=== PATIENT | male | born 1945 | race Caucasian/White ===

== ENCOUNTER 2019-10-22 14:13 | Emergency (ER) | payer MEDICARE, BC, SELFPAY ==
--- NOTE | ~2019-10-22 | XR_ITS ---
EXAMINATION: XR toe 5th RT min 2V INDICATION: Dislocation reduction of the fifth toe TECHNIQUE: Three views of the right fifth toe are obtained. COMPARISON: 1440 hours FINDINGS: The previously described dislocation at the fifth metatarsophalangeal joint has been reduce d. Alignment is anatomic. There are partially imaged neck fractures of the second through fourth meta tarsals. IMPRESSION: 1. Reduced fifth metatarsophalangeal joint dislocation, otherwise no change. Reviewed, dictated and finalized at location A.
--- NOTE | ~2019-10-22 | XR_ITS ---
XR foot RT min 3V DATE: 10/22/2019 14:57 INDICATION: Injury, deformity TECHNIQUE: 4 views of right foot COMPARISON: None FINDINGS: There are transverse fractures at the next of the second through fourth metatarsal bones wi th approximately one cortical width average lateral displacement, with apex medial angulation at the third and fourth metatarsal neck fractures. There is posterolateral dislocation at the fifth metatarsophalangeal joint. Mild osteophyte is at the first metatarsophalangeal joint. IMPRESSION: Posterolateral dislocation of the fifth metatarsophalangeal joint Transverse fractures of the second through fourth metatarsal necks Reviewed, dictated and finalized at location A.
[2019-10-22 14:29] VITALS: BP 108/64; PULSE 69; RESP 17; TEMP 36.8; O2SAT 95
--- NOTE | 2019-10-22 15:07 | ED.GENADULT ---
HPI - General Adult General Chief complaint: Wound/Laceration Stated complaint: possible fractured or dislocated toe Time Seen by Provider: 10/22/19 14:30 Source: patient Mode of arrival: ambulatory History of Present Illness HPI narrative: This patient is a 74 year old male who presents for evaluation right 5th toe injury. He state he accidentally stubbed his right 5th toe on deck chair. This caused him to fall onto his right foot. He noticed that his right 5th toe is deformed so he thinks it may be dislocated. He has no numbness or tingling . He also notice mild pain to fore foot . Related Data Allergies Allergy/AdvReac Type Severity Reaction Status Date / Time ERYTHROMYCIN LACTOBIONATE Allergy Severe RASH Uncoded 10/22/19 14:32 Review of Systems Review of Systems: All systems reviewed & are unremarkable except as noted in HPI and below PMFSH Past Medical History Medical History (Updated 10/22/19 @ 16:38 by Ivana Boo MD) Enlarged prostate Surgical History Surgical History (Updated 10/22/19 @ 16:32 by Ivana Boo MD) H/O hernia repair Social History Social History (Updated 10/22/19 @ 16:33 by Ivana Boo MD) Smoking status: Never smoker Alcohol use details: social Gender identity (if verbalized by the patient): Male Exam Const: General: no acute distress and alert Orientation/consciousness: patient oriented x3 HENMT: Head: normocephalic and atraumatic Face and sinus: face symmetric Eyes: EOM: EOMs intact bilaterally Resp: Effort & Inspection: normal respiratory effort Skin: General skin exam: normal color Rashes: no rashes Neuro: General: patient oriented x3 and moves all extremities Extrem: Other: right foot with mild swelling and bruising at base of toes, with deformity to right 5th toe and tenderness Course Reevaluation(s) Reevaluation #1: Patient's toe has been reduce and he will be discharged with post op shoe and crutches Date: 10/22/19 Time: 16:34 Consultations Consultation #1: I spoke with Dr. Sosa who reviewed xray. He states patient can be given option of surgery tomorrow or go home in post op shoe and crutches. I Discussed with patient and he would prefer to follow up as outpatient and speak with Dr. Sosa. Date: 10/22/19 Time: 16:04 Vital Signs Vital signs: Vital Signs Temperature 98.2 F 10/22/19 14:29 Pulse Rate 69 10/22/19 14:29 Respiratory Rate 17 10/22/19 14:29 Blood Pressure 108/64 10/22/19 14:29 Pulse Oximetry 95 10/22/19 14:29 Temperature 98.2 F 10/22/19 14:29 Pulse Rate 69 10/22/19 14:29 Respiratory Rate 17 10/22/19 14:29 Blood Pressure 108/64 10/22/19 14:29 Pulse Oximetry 95 10/22/19 14:29 Procedures Orthopedic Joint Reduction Joint #1: Orthopedic Joint Reduction Date: 10/22/19 Orthopedic Joint Reduction Time: 16:05 Side: right Joint Reduction Location: toe (5th) Analgesia: nerve block (digit ) Local Anesthesia: bupivacaine 0.25% Amount of anesthesic used (mL): 1 Technique used: direct manipulation Post-reduction vascular: intact Medical Decision Making Vital Signs Vital Signs: Vital Signs Temperature 98.2 F 10/22/19 14:29 Pulse Rate 69 10/22/19 14:29 Respiratory Rate 17 10/22/19 14:29 Blood Pressure 108/64 10/22/19 14:29 Pulse Oximetry 95 10/22/19 14:29 Temperature 98.2 F 10/22/19 14:29 Pulse Rate 69 10/22/19 14:29 Respiratory Rate 17 10/22/19 14:29 Blood Pressure 108/64 10/22/19 14:29 Pulse Oximetry 95 10/22/19 14:29 Imaging Data Radiologist's impression: ITS Impressions Foot X-Ray 10/22/19 15:02 IMPRESSION: Posterolateral dislocation of the fifth metatarsophalangeal joint Transverse fractures of the second through fourth metatarsal necks Toe X-Ray 10/22/19 16:27 IMPRESSION: 1. Reduced fifth metatarsophalangeal joint dislocation, otherwise no
== END 2019-10-22 17:02 | disposition home or self-care (01) ==
PROVIDERS: Emergency Provider General Practice; PCP Family Medicine
DX: S93.124A Dislocation of metatarsophalangeal joint of right lesser toe(s), initial encounter (principal); S92.321A Displaced fracture of second metatarsal bone, right foot, initial encounter for closed fracture; S92.331A Displaced fracture of third metatarsal bone, right foot, initial encounter for closed fracture; S92.341A Displaced fracture of fourth metatarsal bone, right foot, initial encounter for closed fracture; N40.0 Benign prostatic hyperplasia without lower urinary tract symptoms; W18.09XA Striking against other object with subsequent fall, initial encounter
CPT/HCPCS: 28630; 73630; 73660; 99285

== ENCOUNTER 2020-02-23 08:42 | Outpatient (CLI) | payer MEDICARE, BC, SELFPAY | END 2020-02-23 08:43 | disposition home or self-care (01) | PROVIDERS: PCP Family Medicine; Visit Provider Urology | DX: C61 Malignant neoplasm of prostate (principal); Z01.812 Encounter for preprocedural laboratory examination | CPT/HCPCS: 87086 ==

== ENCOUNTER 2020-02-26 01:19 | Outpatient (CLI) | payer MEDICARE, BC, SELFPAY ==
[2020-02-26 17:48] LABS: SARS-CoV-2 RNA PCR Negative
== END 2020-02-26 01:20 | disposition home or self-care (01) ==
LOC: ANHCOVIDDT 01:19
PROVIDERS: PCP Family Medicine; Visit Provider Urology
DX: Z01.812 Encounter for preprocedural laboratory examination (principal); Z20.828 Contact with and (suspected) exposure to other viral communicable diseases
CPT/HCPCS: 87635; C9803; U0003

== ENCOUNTER 2020-02-29 02:19 | Day surgery (SDC) | payer MEDICARE, BC, SELFPAY ==
[2020-02-21 13:46] VITALS: BMI 22.9
[2020-02-29] MEDS: LACTATED RINGERS 1,000 ML 30 ML IV CONT (06:43)
[2020-02-29 06:47] VITALS: BP 131/85; PULSE 57; RESP 18; TEMP 36.1; O2SAT 100
--- NOTE | 2020-02-29 06:50 | WPDANESEPPF ---
Anes - Initial Pre Proc Eval Procedure: Operation Date: 02/29/20 07:30 Proposed Procedures p Insertion SpaceOAR Hydrogel System - Georgi Dorado MD Date/Time: 02/29/20 06:50 Surgeon: Georgi Dorado MD Pre Op Diagnosis: Prostate Ca Patient Data Age: 74 Gender: M Height: 5 ft 8.5 in Weight: 67.7 kg Last Vital Signs Temp 36.1 C L 02/29/20 06:47 Pulse 57 L 02/29/20 06:47 Resp 18 02/29/20 06:47 BP 131/85 02/29/20 06:47 Pulse Ox 100 02/29/20 06:47 Allergies Allergy/AdvReac Type Severity Reaction Status Date / Time erythromycin base Allergy Unknown Rash Verified 02/21/20 13:45 Home Medications Medication Instructions Recorded Confirmed Type calcium citrate-vitamin D3 1 tablet PO BID 02/21/20 02/29/20 History [Citracal Regular] tamsulosin 0.4 mg PO QAM 02/21/20 02/29/20 History Patient hx anesthesia problems: none Family hx anesthesia problems: none [facility] Past Medical History Medical History (Updated 02/29/20 @ 06:50 by Alireza Epps MD) Enlarged prostate Prostate cancer Surgical History Surgical History (Updated 02/29/20 @ 06:50 by Alireza Epps MD) H/O hernia repair History of shoulder surgery Social History Social History Smoking status: Never smoker Alcohol intake: current Drinks per week: 8 Alcohol use details: WINE/BEER Living arrangements: with family Gender identity (if verbalized by the patient): Male Spiritual care concerns: No Anes - Eval Final PreProcedure Day of Procedure 02/29/20 06:50 Patient weight: normal Heart: regular rate and rhythm Lungs: clear to auscultation Airway: Mallampati scale class 1 Neurological: alert and oriented Last oral intake: >/= 8 hours ASA classification: III Emergent: no Anesthetic plan: proceed Anesthesia type and monitoring: general GIVS and standard monitoring Informed Consent: The patient's anesthetic plan and its attendant risks and benefits were discussed with the patient/family/POA. Questions were solicited and answers provided to the satisfaction of the patient/family/POA.
--- NOTE | 2020-02-29 07:12 | WPDHPUPDATE1 ---
History and Physical Update Update Date/Time: 02/29/20 07:12 History and Physical has been reviewed, including an updated exam of the patient. There are NO changes in the patient's condition. Risks, benefits, and alternatives have been discussed and questions answered. Patient agrees to proceed with procedure. Plan for Space oar placement.
[2020-02-29] MEDS: ceFAZolin 2 GM/D5W 50 ML 2 GM/50 ML BAG IVPB (07:26)
[2020-02-29 07:52] VITALS: BP 103/65; PULSE 57; RESP 12; O2SAT 100
--- NOTE | 2020-02-29 07:52 | PM.PROC ---
Procedure Note - Detailed Date of procedure: 02/29/20 Pre-op diagnosis: Prostate Ca Post-op diagnosis: same Procedure performed: Transrectal ultrasound with space Oar placement Description of procedure: Patient is taken to the operative suite and correctly identified. Once anesthesia was obtained was placed in dorsal lithotomy position and prepped and draped in usual sterile fashion. The space OAR was prepared in the standard fashion. Transrectal ultrasound was then performed and the prostate was visualized in both the transverse and sagittal views. Spinal needle was then placed in the space between the prostate and the rectum. This was visualized at all times. The needle tip moved freely and there was no evidence of penetration into the rectal wall. We injected some saline to delineate the location. We then injected the space OAR into the space between the prostate and the rectum. There was a nice separation. Needle tip was visualized at all times. Patient tolerated procedure well without any complications and was taken recovery room stable condition. Anesthesia: MAC Surgeon: Georgi Dorado MD Drains: No Packing: No Pathology: none sent Complications: No immediate complications Condition: stable Disposition: PACU
[2020-02-29 08:20] VITALS: BP 112/76; PULSE 56; RESP 12; O2SAT 96
[2020-02-29 08:45] VITALS: BP 125/72; PULSE 53; RESP 12
== END 2020-02-29 08:52 | disposition home or self-care (01) ==
PROVIDERS: PCP Family Medicine; Visit Provider Urology
PROC: (CPT 55874; principal; 2020-02-29 07:30)
DX: C61 Malignant neoplasm of prostate (principal)
CPT/HCPCS: 55874; A9270; C1889; J0690; J2250; J2405; J2704; J3010; J7120

== ENCOUNTER 2020-03-15 09:32 | Outpatient (CLI) | payer MEDICARE, BC, SELFPAY ==
--- NOTE | ~2020-03-15 | MR_ITS ---
EXAMINATION: MR pelvis wo con DATE: 03/15/2020 11:12 INDICATION: Prostate cancer TECHNIQUE: Magnetic resonance imaging (MRI) of the pelvis was performed without intravenous contrast. Sequences included axial, sagittal and coronal FS FIESTA, axial and coronal FS FIESTA, coronal T2-we ighted FS FSE, 3D axial T2-weighted CUBE, axial STIR FSE, coronal SSFSE ARC, coronal and axial LAVA, axial dual-echo T1-weighted FSPGR, and axial DWI. COMPARISON: None. FINDINGS: There is a 1.8 cm nodule at the apex of the prostate which demonstrates slightly increased T2 signal intensity relative to the remainder of the prostate which merits at the reported prostate cancer. Thi s impresses upon the base of the otherwise normal-appearing bladder. No evident pathologically enlarg ed pelvic or inguinal lymphadenopathy. Visualized portions of the bowels are normal. Lumbar levoscoli osis with moderate to severe spondylosis and associated degenerative endplate changes. No evident pat hologic marrow replacing process. IMPRESSION: 1. 1.8 cm nodule at the apex of the prostate consistent with provided history of prostate cancer. No evident metastatic disease. Reviewed, dictated and finalized at location B. IMPRESSION: 1. 1.8 cm nodule at the apex of the prostate consistent with provided history o f prostate cancer. No evident metastatic disease.
== END 2020-03-15 09:33 | disposition home or self-care (01) ==
PROVIDERS: PCP Family Medicine
DX: C61 Malignant neoplasm of prostate (principal)
CPT/HCPCS: 72195

== ENCOUNTER → 2020-09-16 06:50 | Outpatient (CLI) | payer MEDICARE, BC, SELFPAY ==
[2020-09-17 01:17] LABS: SARS-CoV-2 RNA PCR Negative
== END ==
PROVIDERS: PCP Family Medicine; Visit Provider Family Medicine
DX: R68.89 Other general symptoms and signs (principal); Z20.822 Contact with and (suspected) exposure to COVID-19
CPT/HCPCS: C9803; U0003; U0005

== ENCOUNTER 2020-10-10 12:35 | Outpatient (CLI) | payer MEDICARE, BC, SELFPAY ==
--- NOTE | ~2020-10-10 | US_ITS ---
EXAMINATION: US renal BI DATE: 10/10/2020 13:26 INDICATION: Gross hematuria TECHNIQUE: Multiple ultrasound grayscale images of the kidneys were obtained. COMPARISON: None. FINDINGS: The right kidney measures 10.0 x 5.2 x 5.1 cm. The left kidney measures 9.7 x 4.7 x 4.7 cm. The kidne ys demonstrate normal echogenicity. 9 mm echogenic and shadowing likely stone at the interpolar regio n of the right kidney. 1.7 cm anechoic cyst at the interpolar region of the left kidney. There is no hydronephrosis in either kidney. The diffuse mild bladder wall thickening to at least in part to inco mplete distention although could also reflect changes of chronic outlet obstruction from the enlarged prostate which measures approximately 5.6 x 6.1 x 5.0 cm. IMPRESSION: 1. 9 mm hyperechoic lesion with posterior shadowing consistent with nonobstructing stone at the mid right kidney. No hydronephrosis in either kidney. 2. Prostatomegaly. Reviewed, dictated and finalized at location A. IMPRESSION: 1. 9 mm hyperechoic lesion with posterior shadowing consistent with nonobstruc ting stone at the mid right kidney. No hydronephrosis in either kidney. 2. Prostatomegaly.
== END 2020-10-10 12:36 | disposition home or self-care (01) ==
PROVIDERS: PCP Family Medicine; Visit Provider Urology
DX: R31.0 Gross hematuria (principal); N40.0 Benign prostatic hyperplasia without lower urinary tract symptoms
CPT/HCPCS: 76775

== ENCOUNTER 2020-10-19 14:20 | Outpatient (CLI) | payer MEDICARE, BC, SELFPAY ==
--- NOTE | ~2020-10-19 | XR_ITS ---
EXAMINATION: XR abdomen/kub 1V INDICATION: Kidney stones TECHNIQUE: Supine views of the abdomen were obtained on 2 radiographs. COMPARISON: None FINDINGS: Bowel contents project over the kidneys limiting sensitivity for renal stones. No definite urolithiasis is identified. Surgical clips in the pelvis likely relate to treatment for prostate canc er. There is lumbar levoscoliosis and moderate to severe spondylosis. There are no dilated loops of bowel. Phleboliths are noted in the pelvis. IMPRESSION: 1. No urolithiasis identified. Reviewed, dictated and finalized at location A.
== END 2020-10-19 14:21 | disposition home or self-care (01) ==
PROVIDERS: PCP Family Medicine; Visit Provider Urology
DX: N20.0 Calculus of kidney (principal)
CPT/HCPCS: 74018

== ENCOUNTER 2021-08-20 01:21 | Day surgery (SDC) | payer MEDICARE, BC, SELFPAY ==
[2021-08-08 13:29] VITALS: BMI 23.4
--- NOTE | 2021-08-18 12:39 | P.PNAN_ITS ---
Anes - Initial Pre Proc Eval Procedure: Operation Date: 08/20/21 11:00 Proposed Procedures p Screening Colonoscopy - Constantine Mares MD Date/Time: 08/18/21 12:39 Surgeon: Constantine Mares MD Pre Op Diagnosis: hx of colon polyps Patient Data Age: 75 Gender: M Height: 1.73 m Weight: 70 kg Allergies Allergy/AdvReac Type Severity Reaction Status Date / Time erythromycin base Allergy Unknown Rash Verified 08/20/21 10:01 Home Medications Medication Instructions Recorded Confirmed Type calcium citrate-vitamin D3 1 tablet PO BID 02/21/20 08/08/21 History [Citracal Regular] tamsulosin 0.4 mg PO QAM 02/21/20 08/08/21 History ibuprofen 800 mg tablet 800 mg PO ONCE tablet 05/23/21 08/08/21 History Patient hx anesthesia problems: none Family hx anesthesia problems: none Results Review: All pre-operative results and documents have been reviewed as part of the pre-operative evaluation. [facility] Past Medical History Medical History (Updated 05/23/21 @ 15:09 by Markus Navarrete MD) Enlarged prostate Prostate cancer Surgical History Surgical History H/O hernia repair History of shoulder surgery Social History Social History Smoking status: Never smoker Alcohol intake: current Drinks per week: 8 Alcohol use details: socially Substance use: former Substance use type: marijuana Living arrangements: with family Gender identity (if verbalized by the patient): Male Spiritual care concerns: No Anes - Eval Final PreProcedure Day of Procedure 08/18/21 12:39 Patient weight: normal Heart: regular rate and rhythm Lungs: clear to auscultation and normal air movement Airway: Mallampati scale class II Neurological: alert and oriented Last oral intake: >/= 8 hours ASA classification: II Emergent: no Anesthetic plan: proceed Anesthesia type and monitoring: general GIVS and standard monitoring Results Review: All pre-operative results and documents have been reviewed as part of the pre-operative evaluation. Informed Consent: The patient's anesthetic plan and its attendant risks and benefits were discussed with the patient/family/POA. Questions were solicited and answers provided to the satisfaction of the patient/family/POA.
[2021-08-20 10:02] VITALS: BP 138/80; PULSE 65; RESP 17; TEMP 36.4; O2SAT 99
[2021-08-20] MEDS: LACTATED RINGERS 1,000 ML 150 ML IV CONT (10:14)
--- NOTE | 2021-08-20 10:29 | P.CONGI_ITS ---
Assessment and Plan Assessment and plan (1) History of colon polyps: Code(s): Z86.010 - Personal history of colonic polyps Status: Acute Assessment and Plan: Patient gives a history of colon polyps being identified 3 years ago colonoscopy elsewhere. Plan is for surveillance colonoscopy now and in the at intervals in the future. Further recommendations may be given after endoscopy. GI Consult Note Consult date/time: 08/20/21 10:29 HPI: Chano Henriquez is a 75 year old male Presents for screening colonoscopy. Patient reports he was found to have polyps 3 years ago after having had a colonoscopy in [facility]. Patient states that his current weight appetite bowel movements are normal. He denies abdominal pain. He has had no bleeding. Family history is noncontributory. Review of Systems Review of Systems: All systems reviewed & are unremarkable except as noted in HPI and below PMFSH Past Medical History Medical History (Updated 08/20/21 @ 10:30 by Constantine Mares MD) Enlarged prostate Prostate cancer Surgical History Surgical History H/O hernia repair History of shoulder surgery Social History Social History Smoking status: Never smoker Alcohol intake: current Drinks per week: 8 Alcohol use details: socially Substance use: former Substance use type: marijuana Living arrangements: with family Gender identity (if verbalized by the patient): Male Spiritual care concerns: No Meds Home Medications and Allergies Home Medications Medication Instructions Recorded Confirmed Type calcium citrate-vitamin D3 1 tablet PO BID 02/21/20 08/08/21 History [Citracal Regular] tamsulosin 0.4 mg PO QAM 02/21/20 08/08/21 History ibuprofen 800 mg tablet 800 mg PO ONCE tablet 05/23/21 08/08/21 History Allergies Allergy/AdvReac Type Severity Reaction Status Date / Time erythromycin base Allergy Unknown Rash Verified 08/20/21 10:01 Vital Signs Vital Signs - 24 hr 08/20/21 10:02 Temperature 97.5 F L Pulse Rate 65 Respiratory Rate 17 Blood Pressure 138/80 Pulse Oximetry 99 Exam Narrative: Physical exam reveals patient to be alert. Vital signs stable. HEENT exam is unremarkable. Patient is anicteric. Lungs are clear to auscultation and percussion. Heart is without murmur or extra sounds. Abdominal exam bowel sounds are present soft nontender with no organomegaly. Digital external rectal exam is normal.
[2021-08-20 10:45] VITALS: BP 131/81; PULSE 63; RESP 18; O2SAT 99
[2021-08-20 10:52] VITALS: BP 113/77; PULSE 61; RESP 20; O2SAT 99
[2021-08-20 11:03] VITALS: BP 112/78; PULSE 62; RESP 20; O2SAT 99
== END 2021-08-20 11:06 | disposition home or self-care (01) ==
PROVIDERS: PCP Family Medicine; Visit Provider Internal Medicine Gastroenterology
PROC: 0DJD8ZZ Inspection of Lower Intestinal Tract, Via Natural or Artificial Opening Endoscopic (ICD-10-PCS; CPT 45378; principal; 2021-08-20 11:00)
DX: Z12.11 Encounter for screening for malignant neoplasm of colon (principal); K64.8 Other hemorrhoids; Z86.010 Personal history of colon polyps; Z85.46 Personal history of malignant neoplasm of prostate
CPT/HCPCS: G0105; J2704; J7120

== ENCOUNTER 2022-03-12 16:47 | Outpatient (CLI) | payer MEDICARE, BC, SELFPAY ==
[2022-03-12 17:30] LABS: Basophils Percent Auto 0.4 % (0.2-1.2); Eosinophils Absolute Auto 0.1 K/mm3 (0-0.3); Eosinophils Percent Auto 3.2 % (0-4.4); Hematocrit 33.5 % (42.0-52.0); Immature Granulocyte Absolute 0.01 K/mm3 (0.00-0.031); Immature Granulocyte Percent A 0.4 % (0-0.5); Immature Reticulocyte Fraction 19.1 % (3.0-15.9); Lymphocytes Absolute Auto 0.87 K/mm3 (0.9-3.2); Lymphocytes Percent Auto 30.7 % (18.3-44.2); Mean Corpuscular HGB Conc 32.8 g/dl (32-36); Mean Corpuscular Hemoglobin 36.1 pg (26-34); Mean Corpuscular Volume 109.8 fl (80-100); Monocytes Absolute Auto 0.3 K/mm3 (0.1-0.6); Monocytes Percent Auto 9.9 % (2.6-8.5); Neutrophils Absolute Auto 1.6 K/mm3 (1.3-6.7); Neutrophils Percent Auto 55.4 % (45.5-73.1); Platelet Count Result 76 k/mm3 (150-375); Red Blood Count 3.05 M/mm3 (4.6-6.20); Red Cell Distribution Width 14.3 % (11.5-14.5); Reticulocyte Hemoglobin Conten 37.1 pg (28.2-35.7); Reticulocytes Absolute 0.06 B/L (32.2-175.7); White Blood Count 2.8 K/mm3 (4.5-10.0)
[2022-03-12 17:54] LABS: Macrocytosis 1+ (NORMAL); Platelet Estimate Decreased (Adequate)
[2022-03-12 17:55] LABS: Ovalocytes 1+ (NORMAL)
[2022-03-12 17:56] LABS: Schistocytes None Seen (NORMAL)
== END 2022-03-12 16:48 | disposition home or self-care (01) ==
PROVIDERS: PCP Family Medicine; Visit Provider Physician Assistant
DX: D61.818 Other pancytopenia (principal)
CPT/HCPCS: 36415; 85025; 85046; 85055

== ENCOUNTER 2024-02-11 13:27 | Outpatient (CLI) | payer MEDICARE, BC, SELFPAY ==
--- NOTE | ~2024-02-11 | XR_ITS ---
Clinical Indication: Cough PA and lateral views of the chest: Comparison: None Findings: Probable bibasilar nipple shadows. The lungs are otherwise clear, without evidence of focal consolidation or pleural effusion. Probable COPD. Cardiomediastinal silhouette is within normal limi ts. Left shoulder arthroplasty present. Impression: Probable bilateral nipple shadows, otherwise clear lungs. Probable COPD. Reviewed, dictated and finalized at location . Impression: Probable bilateral nipple shadows, otherwise clear lungs. Probable COPD.
== END 2024-02-11 13:28 | disposition home or self-care (01) ==
PROVIDERS: PCP Internal Medicine Cardiovascular Disease; Visit Provider Family Medicine
DX: R05.9 Cough, unspecified (principal); R06.02 Shortness of breath; R91.8 Other nonspecific abnormal finding of lung field
CPT/HCPCS: 71046

== ENCOUNTER 2024-02-25 08:08 | Outpatient (CLI) | payer MEDICARE, BC, SELFPAY ==
--- NOTE | 2024-02-25 12:33 | P.PCNPFT_ITS ---
PFT Procedure Performed PFT Procedure Performed Plethysmography (Lung Vol) Diffusing Cap (DLCO) Flow Vol Loop Spirometry w/o Bronchodil PFT Interpretation This is a pulmonary function test with spirometry, plethysmography and diffusing capacity. The test was performed and results interpreted in accordance with the 2019 and 2005 ATS/ERS Task Force guidelines respectively using the Global Lung Function Initiative-2012 reference equations. Patient demonstrated good effort and cooperation. Reproducibility criteria were met. The quality of the spirometry maneuver was Grade A. Of note, patient only able to perform 1 plethysmography maneuver despite 4 attempts and good coaching. Findings: Spirometry: There is decreased maximal expiratory airflow at all lung volumes with a concave expiratory flow tracing. The contour the inspiratory flow tracing is normal. The FVC is 2.94 L, 81% predicted. The FEV1 is 1.47 L, 54% predicted. The FEV1: FVC ratio is 50%. Plethysmography: The total lung capacity is 7.89 L, 123% predicted. The functional residual capacity is 5.25 L, 154% predicted. The residual volume is 4.30 L, 179% predicted. The residual volume: Total lung capacity ratio is 54%. Diffusing capacity: The diffusing capacity unadjusted for hemoglobin and carboxyhemoglobin is 14.5, 62% predicted. The diffusing capacity adjusted for alveolar volume is 2.69, 69% predicted. Impression: There is a moderately severe obstructive abnormality. The increase in residual volume to total lung volume ratio is consistent with hyperinflation from an obstructive abnormality. The diffusing capacity unadjusted for hemoglobin and carboxyhemoglobin is mildly decreased and remains mildly dec reased when adjusted for alveolar volume. There are no prior studies for comparison
== END 2024-02-25 08:09 | disposition home or self-care (01) ==
LOC: ANHPFT 08:10
PROVIDERS: PCP Family Medicine; Referring Provider Internal Medicine Cardiovascular Disease; Visit Provider Family Medicine
DX: I20.0 Unstable angina (principal); R05.9 Cough, unspecified; R94.2 Abnormal results of pulmonary function studies
CPT/HCPCS: 94375; 94726; 94729